=== PATIENT | male | born 1985 | race Asian ===

== ENCOUNTER 2020-02-01 10:41 | Emergency (ER) | payer SELFPAY ==
[~2020-02-01] VITALS: Ht 180.3 cm; Wt 98.0 kg
--- NOTE | 2020-02-01 11:17 | NUR ---
PT PRESENTING TO ER FOR SORE THROAT, FEVER AND BODY ACHES STARTING YESTERDAY. UPON ASSESSMENT PT WARM TO TOUCH, TONSILS SWOLLEN WITH WHITE PATCHES, SWABBED FOR STREP SENT TO LAB. CONNECTED TO ALL MONITORING, TACHY HR 115-140, HTN. HX OF HTN STS HASNT SEEN PCP FOR MEDS. PROVIDER ORDERS RECEIVED. CALL LIGHT WITHIN REACH. REPORT GIVEN TO BERNIE JUÁREZ
[2020-02-01] MEDS ORDERED: ACETAMINOPHEN 325 MG TABLET ONE (11:23)
[2020-02-01] MEDS ORDERED: KETOROLAC 30 MG/1 ML IM ONE (11:30)
[2020-02-01] MEDS ORDERED: CEFTRIAXONE 1,000 MG IM ONE (11:30)
[2020-02-01] MEDS ORDERED: ACETAMINOPHEN 325 MG TABLET PO ONE (11:30)
[2020-02-01] MEDS ORDERED: SODIUM CHLORIDE 0.9% 1,000ML IVBOLUS ONE (12:00)
[2020-02-01] MEDS ORDERED: CEFTRIAXONE PMX 2GM/50ML 50 ML IV SCH (12:00)
[2020-02-01 12:01] LABS: ALANINE AMINOTRANSFERASE 31 U/L (12-78); ALBUMIN 3.3 g/dL (3.4-5.0); ANION GAP 8 mmol/L (5-15); CALCIUM 9.1 mg/dL (8.5-10.1); CHLORIDE 108 mmol/L (98-107); CREATININE 0.91 mg/dL (0.7-1.3)
[2020-02-01 12:03] LABS: ALKALINE PHOSPHATASE 109 U/L (45-117); BILIRUBIN,TOTAL 0.5 mg/dL (0.2-1.0); TOTAL PROTEIN 7.5 g/dL (6.4-8.2)
[2020-02-01 12:06] LABS: MEAN CORPUSCULAR HEMOGLOBIN 27.8 pg (27.5-34.5); MEAN CORPUSCULAR HGB CONC 33.3 g/dL (33.2-36.2); MEAN CORPUSCULAR VOLUME 83.5 fL (81-97); RED BLOOD COUNT 5.93 x10^6/uL (4.38-5.82); RED CELL DISTRIBUTION WIDTH 13.3 % (9.4-14.8)
[2020-02-01] MEDS ORDERED: CEFTRIAXONE PMX 1GM/50ML 50 ML ONE (12:18)
--- NOTE | 2020-02-01 12:22 | NUR ---
IV ABX STARTED AFTER BC DRAWN. 1ST LITER DONE, 2ND LITER NS INFUSING.
[2020-02-01 12:24] LABS: MD YES; MEAN PLATELET VOLUME 13.3 fL (7.4-10.4); PLATELET COUNT 151 x10^3/uL (130-400)
[2020-02-01 12:26] VITALS: BP 144/91
[2020-02-01 12:26] LABS: BAND#(MANUAL) 1.27 x10^3/uL; BANDS%(MANUAL) 12 % (0-7); BASOS#(MANUAL) 0.11 x10^3/uL (0-0.1); BASOS% (MANUAL) 1 % (0-1); LYMPH#(MANUAL) 1.06 x10^3/uL (1-3.4); LYMPHS% (MANUAL) 10 % (22-44); MONOS#(MANUAL) 0.42 x10^3/uL (0.3-2.7); MONOS% (MANUAL) 4 % (2-9); SEG#(MANUAL) 7.74 x10^3/uL (1.8-6.8); SEGS% (MANUAL) 73 % (42-75)
[2020-02-01 12:28] LABS: <PLATELET ESTIMATE> ADEQUATE; <RBC MORPHOLOGY> NORMAL; GIANT PLATELETS 1+; LARGE PLATELETS 1+
== END 2020-02-01 13:09 | disposition home or self-care (01) ==
LOC: ED 13:00
DX: R50.9 Fever, unspecified (principal); J02.9 Acute pharyngitis, unspecified; R00.0 Tachycardia, unspecified; J45.909 Unspecified asthma, uncomplicated; F17.290 Nicotine dependence, other tobacco product, uncomplicated
CPT/HCPCS: 36415; 71045; 80053; 83605; 84145; 85025; 87040; 93005; 96365; 99285; J0696; J7030; J7512